=== PATIENT | female | born 1995 | race Caucasian/White ===

== ENCOUNTER → 2023-05-29 12:52 | Outpatient (REF) | payer OTHER, SELFPAY | LOC: HWRAD 12:52 | PROVIDERS: ATTENDING PHYSICIAN Nurse Practitioner Family; FAMILY PHYSICIAN Emergency Medicine | DX: Z34.90 Encounter for supervision of normal pregnancy, unspecified, unspecified trimester (principal) | CPT/HCPCS: 76801; 76817 ==

== ENCOUNTER → 2023-06-09 13:52 | Outpatient (REF) | payer OTHER, SELFPAY | LOC: PNTC 13:52 | PROVIDERS: ATTENDING PHYSICIAN Obstetrics & Gynecology | DX: Z36.0 Encounter for antenatal screening for chromosomal anomalies (principal); Z36.82 Encounter for antenatal screening for nuchal translucency | CPT/HCPCS: 36415; 76801; 76813 ==

== ENCOUNTER → 2023-07-07 13:54 | Outpatient (REF) | payer OTHER, SELFPAY | LOC: PNTC 13:54 | PROVIDERS: ATTENDING PHYSICIAN Obstetrics & Gynecology | DX: O99.210 Obesity complicating pregnancy, unspecified trimester (principal); O98.519 Other viral diseases complicating pregnancy, unspecified trimester; U07.1 COVID-19 | CPT/HCPCS: 76805 ==

== ENCOUNTER → 2023-08-11 14:00 | Outpatient (REF) | payer OTHER, SELFPAY | LOC: PNTC 14:00 | PROVIDERS: ATTENDING PHYSICIAN Obstetrics & Gynecology | DX: O99.210 Obesity complicating pregnancy, unspecified trimester (principal); O98.519 Other viral diseases complicating pregnancy, unspecified trimester; U07.1 COVID-19 | CPT/HCPCS: 76811 ==

== ENCOUNTER → 2023-09-22 14:56 | Outpatient (REF) | payer OTHER, SELFPAY | LOC: PNTC 14:56 | PROVIDERS: ATTENDING PHYSICIAN Obstetrics & Gynecology | DX: O98.519 Other viral diseases complicating pregnancy, unspecified trimester (principal); O99.210 Obesity complicating pregnancy, unspecified trimester | CPT/HCPCS: 76816 ==

== ENCOUNTER → 2023-11-03 14:16 | Outpatient (REF) | payer OTHER, SELFPAY | LOC: PNTC 14:16 | PROVIDERS: ATTENDING PHYSICIAN Obstetrics & Gynecology | DX: O98.519 Other viral diseases complicating pregnancy, unspecified trimester (principal); U07.1 COVID-19; O99.210 Obesity complicating pregnancy, unspecified trimester | CPT/HCPCS: 76816 ==

== ENCOUNTER → 2023-12-01 13:17 | Outpatient (REF) | payer OTHER, SELFPAY | LOC: PNTC 13:17 | PROVIDERS: ATTENDING PHYSICIAN Obstetrics & Gynecology | DX: O99.210 Obesity complicating pregnancy, unspecified trimester (principal); O26.891 Other specified pregnancy related conditions, first trimester | CPT/HCPCS: 76816 ==

== ENCOUNTER 2023-12-28 01:18 | Inpatient (IN) | payer OTHER, SELFPAY ==
[2023-12-28 01:30] VITALS: BMI 35.2
[2023-12-28 01:42] VITALS: BP 149/90
[2023-12-28 01:58] LABS: % Basophils 0.4 % (0-2); % Eosinophils 1.1 % (0-6); % Immature Granulocytes 0.9 % (0-0.5); % Lymphocytes 24.8 % (20.5-51.1); % Monocytes 10.3 % (1.7-9.3); % Neutrophils 62.5 % (42.2-75.2); Absolute Eosinophils 0.1 10^3/uL (0-0.7); Absolute Immature Granulocytes 0.1 10^3/uL (0-0.05); Absolute Lymphocytes 2.6 10^3/uL (1.2-3.4); Absolute Monocytes 1.1 10^3/uL (0.1-0.6); Absolute Neutrophils 6.5 10^3/uL (1.4-6.5); Hematocrit 36.7 % (37.0-47.0); Mean Corp Hgb Conc. 35.4 g/dL (33.0-37.0); Mean Corpuscular Hgb 33.7 pg (27.0-31.0); Mean Corpuscular Volume 95.1 fL (81.0-99.0); Mean Platelet Volume 10.9 fL (7.4-10.4); Nucleated Red Blood Cells % 0 %; Platelet Count 230 10^3/uL (130-400); Red Blood Cell Count 3.86 10^6/uL (4.20-5.40); Red Cell Dist. Width 12.6 % (11.5-14.5); White Blood Cell Count 10.3 10^3/uL (4.8-10.8)
[2023-12-28 02:11] LABS: Amphetamines Negative (Negative); Barbiturates Negative (Negative); Benzodiazepines Negative (Negative); Buprenorphine Negative (Negative); Cocaine Negative (Negative); Methamphetamines Negative (Negative)
[2023-12-28 02:12] LABS: Marijuana Negative (Negative); Methadone Negative (Negative); Opiates Negative (Negative); Phencyclidine Negative (Negative); Tricyclic Antidepressants Negative (Negative)
[2023-12-28] MEDS: TYLENOL 1000 MG PO (03:14)
[2023-12-28] MEDS: ANCEF 10 IV (03:14)
[2023-12-28] MEDS: BICITRA 30 ML PO (03:14)
[2023-12-28] MEDS: ZITHROMAX INFUSION 250 IV (03:18)
--- NOTE | 2023-12-28 05:33 | OR.RPT ---
Operative Report
Operative Report
Preop diagnosis: IUP @39.5, spontaneous rupture of membranes, labor, history previous section
Postop diagnosis: same
Procedure: repeat low transverse section
Surgeon: Charlie
Anesthesia: Spinal Dr. Jose
QBL: 485mL
Findings: Viable male infant born at 0401, weighing 3590g, with Apgars of 8 and 9 at one and five minutes respectively. Normal appearing uterus, bilateral fallopian tubes and ovaries.
Taylor: clear yellow
Complications: none
Indication: Patient is a 28yo at 39.5 weeks who presented to Labor and Delivery with complaints of spontaneous rupture of membranes and contractions. She was found to be grossly ruptured for clear fluid. Cervical exam was . Patient
has a history of one prior section for arrest of dilation 13 months ago. Throughout her , patient was considering a trial of labor after . Maternal medicine consult said patient could TOLAC if she went into
spontaneous labor with increased risk of uterine rupture of 2%. Discussed with patient proceeding with expectant management vs repeat low transverse section. Patient and her partner were given time to discuss and she decided to proceed with
repeat low transverse section. Risks, benefits, and alternatives were discussed and all questions answered. Consents were signed and in the chart.
Procedure: Patient was taken to the operating room where spinal anesthesia was administered and found to be adequate. 2g of Ancef and 500mg of Azithromycin were given for infection prophylaxis. The abdomen was prepped with ChloraPrep. The patient
was draped in the normal sterile fashion. She was placed in the dorsal supine position with a left lateral tilt. A Pfannenstiel incision was made through previous scar and carried down to the fascia with a scalpel. Hemostasis achieved with Bovie.
The fascia was incised and dissected laterally with Michaels scissors. The superior aspect of the fascia was grasped with Lala clamps. The underlying rectus fascia was sharply dissected with Michaels scissors. In a similar fashion the inferior aspect of
the fascia was elevated with Lala clamps and the rectus muscle was dissected off. The rectus muscles were down the midline to the level of the pubic symphysis with manual dissection and Metzenbaum scissors. The peritoneum was elevated
with hemostats and entered through a clear window with Metzenbaum scissors. The peritoneum was extended using Metzenbaum scissors and manual traction.
Bruce retractor and bladder blade were placed revealing good visualization of the bladder. The vesicouterine peritoneum was identified. A very thin lower uterine segment was noted. The lower uterine segment was incised with a scalpel. Clear
fluid noted at entry into the cavity. The uterine incision was extended bluntly with lateral and upward traction.
The fetus was in cephalic presentation. The head was elevated out of the pelvis with special attention paid to avoid using the uterine incision as a fulcrum. Gentle fundal pressure was applied one the head was brought to the incision. The infant was
delivered without difficulty. Delayed cord clamping was performed. The infant was handed off to the glucose and syrup weigher. Cord blood and cord gases were collected. IV oxytocin was started to facilitate uterine contractions. The placenta was delivered with
gentle traction and uterine fundal massage. The uterus was exteriorized. Allis clamps were placed at the apices of the hysterotomy. The inside of the uterus was wiped with a lap sponge to assure complete removal of placental membranes. Fundal
massage was performed and uterus noted to be firm. The uterine incision was closed with 0 Vicryl in a running locked fashion. A horizontal imbricating stitch was done on the hysterotomy. Oozing from the hysterotomy was controlled with figure of
eights with 2-0 Vicryl. Small oozing vessels from the lower edge of the hysterotomy were cauterized with the Bovie. The uterus was placed back in the abdomen. Oozing noted from the center of the hysterotomy. Hemostasis achieved with figure of eights
with 2-0 Vicryl. The hysterotomy was inspected and noted to be hemostatic. Blood clots and fluid were wiped out of the abdomen and pelvis with moist laparotomy sponges. Surgicel was placed over the hysterotomy which remained hemostatic.
The rectus muscles were inspected and any oozing was controlled using Bovie cautery. The fascial layer was closed in a running continuous fashion using 0-Vicryl. The subcutaneous tissue was copiously irrigated and any small bleeding vessels were
cauterized with Bovie cautery. The subcutaneous tissue was reapproximated in a running continuous fashion with 2-0 Plain. The skin was closed with 4-0 Monocryl in a subcuticular fashion. The incision was covered with skin glue and a pressure
dressing. The patient tolerated the procedure well. All sponge and instrument counts were correct times two. The patient was taken to the recovery room in stable condition.
[2023-12-28] MEDS: TORADOL 15 MG IV ×4 (05:36→23:27)
[2023-12-28] MEDS: PRENATAL PLUS PO (10:25)
[2023-12-28] MEDS: SENOKOT-S 1 TABLET PO (20:04)
[2023-12-29 05:28] LABS: Hematocrit 31.1 % (37.0-47.0); Hemoglobin 10.9 g/dL (12.0-16.0); Mean Corpuscular Hgb 34.1 pg (27.0-31.0); Mean Corpuscular Volume 97.2 fL (81.0-99.0); Mean Platelet Volume 10.8 fL (7.4-10.4); Platelet Count 178 10^3/uL (130-400); Red Cell Dist. Width 12.7 % (11.5-14.5); White Blood Cell Count 10.4 10^3/uL (4.8-10.8)
[2023-12-29] MEDS: TORADOL 15 MG IV (05:33)
--- NOTE | 2023-12-29 08:01 | W.PN.ANS.POP ---
Anesthesia Post Operative
- Anesthesia Post Op Note
Vital Signs Stable-See Nursing Note: Yes
Airway Patent: Yes
Adequate Pain Control: Yes
Change in Mental Status: No
Current Postoperative Nausea & Vomiting: No
Anesthesia Complications: No
General Anesthetic Recall: No
Unplanned Admission: No
Post Op Hydration Adequate: Yes
- -
Pt doing well, no anesthesia related c/o at time of post op visit. Resting comfortably.
[2023-12-29] MEDS: PRENATAL PLUS 1 TABLET PO (08:59)
[2023-12-29] MEDS: MYLICON 80 MG PO ×2 (08:59→23:29)
[2023-12-29] MEDS: TYLENOL 650 MG PO ×3 (08:59→20:34)
[2023-12-29 11:25] LABS: Syphilis/T. pallidum Ab Reflex Negative (Negative)
[2023-12-29] MEDS: MOTRIN 600 MG PO ×2 (14:25→20:34)
[2023-12-30] MEDS: TYLENOL 650 MG PO ×2 (03:00→09:05)
[2023-12-30] MEDS: MOTRIN 600 MG PO ×2 (03:00→09:04)
--- NOTE | 2023-12-30 03:02 | DOWNTIME ---
There was a [employer] Downtime on 12/30/2023 from 0100 to 12/30/2023 at 0300. Downtime documentation of patient's care, including medication administrations, has been reconciled in the electronic record per guidelines. Refer to the
patient's paper chart under the miscellaneous tab to see printed paper medication records and downtime forms.
[2023-12-30] MEDS: PRENATAL PLUS 1 TABLET PO (08:09)
[2023-12-30] MEDS: MYLICON 80 MG PO (09:04)
--- NOTE | 2023-12-30 12:16 | W.DS.TRANS ---
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
-
Discharge Instructions:
Discharge Diagnosis/Procedures s/p elective repeat low-transverse
Instructions:
Stand-Alone Forms: LDRP Delivery
Changes to Home Medications: No
Discharge Medications:
DC Medications w/original date entered in [facility]
[id number]-[id number] 1 mg tablet 1 tab PO DAILY Supplement 11/12/22
acetaminophen 325 mg tablet 650 mg (2 x 325 mg) PO Q4HPRN PRN mild pain #0 tabs 12/30/23
ibuprofen 600 mg tablet 600 mg PO Q6HPRN PRN cramps #60 tabs 12/30/23
oxycodone 5 mg tablet 5 mg PO Q4H PRN severe pain #7 tabs 12/30/23
sennosides 8.6 mg-docusate sodium 50 mg tablet 1 tab PO DAILYPRN PRN constipation #0 tabs 12/30/23
Home Medication Changes
Pending Results: No
Total time spent discharging patient (in min): 20
== END 2023-12-30 13:43 | disposition home or self-care (01) | DRG 788 ==
LOC: LDRP 01:18
PROVIDERS: Student in an Organized Health Care Education/Training Program; ADMITTING PHYSICIAN Obstetrics & Gynecology
PROC: 10D00Z1 Extraction of Products of Conception, Low, Open Approach (ICD-10-PCS; 2023-12-28)
DX: O34.211 Maternal care for low transverse scar from previous cesarean delivery (principal); O99.344 Other mental disorders complicating childbirth; F41.9 Anxiety disorder, unspecified; Z37.0 Single live birth; Z3A.39 39 weeks gestation of pregnancy
CPT/HCPCS: 36415; 80306; 85025; 85027; 86780; 86850; 86900; 86901